=== PATIENT | male | born 1945 | race Caucasian/White ===

== ENCOUNTER 2019-06-26 07:21 | Day surgery (SDC) | payer MEDICARE, BC ==
[2019-06-15 15:12] LABS: BASOPHILS # (AUTO) 0.1 X10'3 (0-0.2); BASOPHILS % (AUTO) 0.8 % (0-1); EOSINOPHILS # (AUTO) 0.4 X10'3 (0-0.9); EOSINOPHILS % (AUTO) 4.7 % (0-6); LYMPHOCYTES % (AUTO) 24.8 % (21-51); MEAN CORPUSCULAR HEMOGLOBIN 29.4 PG (27.0-31.0); MEAN CORPUSCULAR HGB CONC 33.2 g/dL (33.0-36.5); MEAN CORPUSCULAR VOLUME 88.6 FL (78-98); MEAN PLATELET VOLUME 7.7 FL (7.4-10.4); MONOCYTES # (AUTO) 0.6 X10'3 (0-0.9); MONOCYTES % (AUTO) 7.8 % (2-12); NEUTROPHILS # (AUTO) 5.1 X10'3 (1.8-7.7); NEUTROPHILS % (AUTO) 61.9 % (42-75); PRE OP HEMATOCRIT 45.1 % (42.0-52.0); PRE OP HEMOGLOBIN 14.9 g/dL (14.0-17.9); PRE OP PLATELET COUNT 225 X10'3 (140-440); RED BLOOD COUNT 5.08 X10'6 (4.70-6.10); RED CELL DISTRIBUTION WIDTH 13.3 % (11.5-14.5)
[2019-06-15 15:27] LABS: ALBUMIN 3.5 G/DL (3.4-5.0); ALBUMIN/GLOBULIN RATIO 1.1 (1.1-1.5); ALKALINE PHOSPHATASE 57 IU/L (46-116); BLOOD UREA NITROGEN 20 MG/DL (7-18); BUN/CREATININE RATIO 20.8 (5.4-32.0); CHLORIDE 106 MMOL/L (99-107); CREATININE 0.96 MG/DL (0.60-1.10); PRE OP ALT 46 U/L (30-65); PRE OP ANION GAP 6 (8-16); PRE OP AST 19 U/L (10-37); PRE OP BILIRUB, TOTAL 0.3 MG/DL (0.0-1.0); PRE OP GLUCOSE 98 MG/DL (70-104); PRE OP POTASSIUM 4.4 MMOL/L (3.4-5.1); PRE OP SODIUM 138 MMOL/L (135-145); TOTAL PROTEIN 6.8 G/DL (6.4-8.2); eGFR 77 ML/MIN
[2019-06-26] VITALS (8 sets, daily range): BP systolic 110–169; BP diastolic 67–92
[~2019-06-26] VITALS: Ht 172.7 cm; Wt 104.3 kg
[~2019-06-26 07:21] MED LIST: DICL50TA6 PO; LOSA50TA3 PO; OMEP20CA15 PO; SIMV-42 PO; ceFAZolin 2gm in dextrose, iso 50 ML IV ONE; cefazolin/dext.iso 2gm/100ml 100 ML IV ONE; famotidine 20mg tablet PO ONE; ringers solution, lacted 1,000 ML IV SCH
[2019-06-26] MEDS ORDERED: bacitracin 15gm ointment TP ONE (08:14)
[2019-06-26] MEDS ORDERED: BUPIVAcaine/PF 2.5 mg/ml (0.25%) 30ml vial ONE (08:14)
[2019-06-26] MEDS ORDERED: propofol 10mg/ml 20ml vial IV ONE (08:15)
[2019-06-26] MEDS ORDERED: morphine 10mg/ml inj. ONE (08:15)
[2019-06-26] MEDS ORDERED: ePHEDrine 50MG/ML INJ. ONE (08:15)
[2019-06-26] MEDS ORDERED: midazolam 2 mg/2 ml injection ONE (08:15)
[2019-06-26] MEDS ORDERED: ondansetron/PF 4mg/2ml inj ONE (08:15)
[2019-06-26] MEDS ORDERED: dexamethasone sod phosphate 4mg/ml inj. ONE (08:15)
[2019-06-26] MEDS ORDERED: LIDOcaine 2% (20mg/ml) 5ml vial ONE (08:15)
[2019-06-26] MEDS ORDERED: fentaNYL/PF 50MCG/1 ML 2ML syringe ONE (08:15)
[2019-06-26] MEDS ORDERED: ROPIVAcaine 0.5% (5mg/ml) 30ml vial ONE (08:15)
[2019-06-26] MEDS ORDERED: cloNIDine hcl/PF 100mcg/ml inj ONE (08:18)
[2019-06-26] MEDS ORDERED: sevoflurane 250ml liquid IH ONE (08:20)
[2019-06-26] MEDS ORDERED: ringers solution, lacted 1,000 ML IV SCH (08:46)
[2019-06-26] MEDS ORDERED: acetaminophen 1,000mg/100ml IV 100 ML IV PRN (08:50)
[2019-06-26] MEDS ORDERED: ondansetron/PF 4mg/2ml inj IV PRN (08:50)
[2019-06-26] MEDS ORDERED: meperidine/PF 25mg/ml syringe IV PRN ×3 (08:50)
[2019-06-26] MEDS ORDERED: morphine 2 MG/ML inj. syringe IV PRN (08:50)
[2019-06-26] MEDS ORDERED: proCHLORperazine 10 MG/2 ml inj IV PRN (08:50)
[2019-06-26] MEDS ORDERED: morphine 4 MG/ML inj SYRINge IV PRN (08:50)
--- NOTE | 2019-06-26 10:35 | NUR ---
Received from OR via giorgio, accompanied by Anesthesiologist Juan Jose and report given by Anesthesiolgist. Pt moving all extrems but not responding to questions appropriately yet. Right foot/ankle in hard cast and toes visible, pink and cap refill less than 3 sec. 20G to right wrist with LR at 100CC/hr. Mask to 10L and sats 95%. Will monitor closely.
--- NOTE | 2019-06-26 11:45 | NUR ---
When pt stood to get dressed, bloody drainage from toes/open part of the cast began oozing. The site did begin to clot and congeal. I called MD to inform him. Orders received to cover with more 4x4 dressings and wrap with extra dae bandage. Orders followed, will inform upon DC.
--- NOTE | 2019-06-26 12:15 | NUR ---
Pt discharged to vehicle by wheelchair without incident after IV dc'd, patient dressed in his own clothing and all belongings returned. Pt verbalized DC instructions and all paper reviewed over phone with . states they've already received pain meds from MD office. Reinforced area of dressing described to and remains CDI at time of DC. Pt has crutches and ice packs at home.
== END 2019-06-26 12:15 | disposition home or self-care (01) ==
LOC: PAS 07:21
PROVIDERS: ATTEND Podiatrist Foot & Ankle Surgery
DX: M19.071 Primary osteoarthritis, right ankle and foot (principal); M20.11 Hallux valgus (acquired), right foot; M20.21 Hallux rigidus, right foot; I10 Essential (primary) hypertension; M25.374 Other instability, right foot; K21.9 Gastro-esophageal reflux disease without esophagitis; Z79.899 Other long term (current) drug therapy; Z79.82 Long term (current) use of aspirin; Z11.59 Encounter for screening for other viral diseases
CPT/HCPCS: 20902; 28740; 28750; 36415; 73620; 76000; 80053; 82948; 85025; 87635; 93005; A6223; C1713; J0131; J0735; J1100; J2001; J2250; J2270; J2405; J2704; J3010; J3490; A4215; A4618; A6253; A6446; A6449; A7000; J2795; J7120

== ENCOUNTER 2024-08-04 14:35 | Outpatient (CLI) | payer MEDICARE, BC ==
[~2024-08-04 14:35] MED LIST changes: +LOSA-416 PO; -LOSA50TA3 PO; -ceFAZolin 2gm in dextrose, iso 50 ML IV ONE; -cefazolin/dext.iso 2gm/100ml 100 ML IV ONE; -famotidine 20mg tablet PO ONE; -ringers solution, lacted 1,000 ML IV SCH
--- NOTE | 2024-08-04 17:11 | RADIOLOGY REPORT ---
EXAM: MR MRI HEAD HISTORY: MALIGNANT MELANOMA OF OTHER PART OF TRUNK COMPARISON: None TECHNIQUE: Multiplanar multisequence pre and post IV contrast MR images of the brain were performed. 15 mL Clariscan gadolinium contrast were used. FINDINGS: No intracranial mass, midline shift, hydrocephalus, or abnormal postcontrast enhancement. T he diffusion-weighted images do not demonstrate restricted diffusion. There is global brain atrophy. There is minimal high T2-FLAIR signal abnormality in the right frontal periventricular white matter. Flow voids are present in the major intracranial vessels. The corpus callosum, sella, pituitary, and craniocervical junction are unremarkable. There are Postoperative changes of bilateral cataract extra ction surgery. There is mucosal thickening in the bilateral maxillary, frontal, and ethmoid sinuses. The bilateral mastoid air cells are clear. IMPRESSION: 1. Global brain atrophy and chronic ischemic changes without evidence of acute infarct or other acute intracranial process. 2. Postoperative changes of Bilateral cataract extraction surgery. 3. Mild paranasal sinus disease.
== END 2024-08-04 23:59 | disposition home or self-care (01) ==
LOC: MRI 14:35
PROVIDERS: ATTEND Internal Medicine Hematology & Oncology
DX: I67.82 Cerebral ischemia (principal); C43.59 Malignant melanoma of other part of trunk; G31.9 Degenerative disease of nervous system, unspecified
CPT/HCPCS: 70546; A9575

== ENCOUNTER 2024-08-05 13:06 | Outpatient (CLI) | payer MEDICARE, BC ==
[~2024-08-05 13:06] MED LIST changes: +GADOTERATE MEGLUMINE 7.5 MMOL/15 ML VIAL IV ONE; +iohexol 300mg/ml 100ml inj. ONE
--- NOTE | 2024-08-05 20:33 | RADIOLOGY REPORT ---
EXAM: CT CT ABDOMEN PELVIS HISTORY: ABD PAIN, N/V ON XRT EVALUATE FOR OBSTRUCTION TECHNIQUE: Volumetric multidetector CT images of the abdomen and pelvis were obtained after the admin istration of intravenous contrast. All CT scans at this facility use dose modulation, iterative recon struction, and/or weight based dosing when appropriate to reduce radiation dose to as low as reasonab ly achievable. COMPARISON: None FINDINGS: [LOWER CHEST]: The partially visualized lung bases are clear without a pleural effusion. [LIVER]: Small focal, well circumscribed hepatic hypodensities, which are nonspecific but statistical ly most likely represent small hepatic cysts. [GALLBLADDER AND BILIARY TREE]: No cholelithiasis. [SPLEEN]: Unremarkable. [PANCREAS]: Unremarkable. [ADRENAL GLANDS]: Unremarkable [KIDNEYS]: No hydronephrosis. No nephroureterolithiasis. No suspicious focal lesion. [BLADDER]: Unremarkable for the degree distention. [REPRODUCTIVE ORGANS]: Mild to moderate prostatomegaly. [BOWEL/MESENTERY]: Stomach is normal. No CT evidence of bowel obstruction. Severe sigmoid and descend ing colonic diverticulosis with additional scattered colonic diverticulosis throughout the entirety o f the segments. Inflammatory stranding compatible with acute diverticulitis of the distal descending colon. No intraperitoneal free air [ASCITES]: Absent [LYMPHADENOPATHY]: No pathologically enlarged lymph nodes by CT size criteria [VASCULATURE]: No aneurysmal dilatation. [ABDOMINAL WALL]: Small fat containing right inguinal hernia [MUSCULOSKELETAL]: No acute fracture or aggressive focal osseous lesion. Multifocal degenerative rose ge of the visualized spine. Trace retrolisthesis L1 over L2. IMPRESSION: 1. Inflammatory stranding compatible with acute diverticulitis of the distal descending colon. No int raperitoneal free air. 2. No definitive pericolonic abscess at this time.
== END 2024-08-05 23:59 | disposition home or self-care (01) ==
LOC: RAD 13:06
PROVIDERS: ATTEND Internal Medicine Hematology & Oncology
DX: K57.30 Diverticulosis of large intestine without perforation or abscess without bleeding (principal); C43.59 Malignant melanoma of other part of trunk; N40.0 Benign prostatic hyperplasia without lower urinary tract symptoms; K40.90 Unilateral inguinal hernia, without obstruction or gangrene, not specified as recurrent
CPT/HCPCS: 74177; A9575; Q9967